=== PATIENT | female | born 2000 | race Caucasian/White ===

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

== ENCOUNTER → 2023-06-23 | Outpatient (CLI) | payer BC | LOC: M ADAMS 14:56 | PROVIDERS: ATTEND Nurse Practitioner Family | DX: M54.2 Cervicalgia (principal) ==

== ENCOUNTER → 2023-07-30 | Outpatient (CLI) | payer BC | LOC: M RAD 16:58 | PROVIDERS: ATTEND Nurse Practitioner Family | DX: J32.9 Chronic sinusitis, unspecified (principal) ==

== ENCOUNTER → 2023-08-12 | Outpatient (REF) | payer BC ==
[2023-08-12 13:04] LABS: BASO % 0.1 % (0.0-1.0); EOS # 0.1 10^3/uL (0.0-0.5); HEMATOCRIT 38.7 % (36.0-47.0); HEMOGLOBIN 12.8 g/dl (12.0-15.5); LYMPH # 1.7 10^3/uL (1.5-5.0); LYMPH % 23.1 % (24.0-44.0); MEAN CORPUSCULAR HEMOGLOBIN 30.6 pg (27.0-33.0); MEAN CORPUSCULAR HGB CONC 33.1 g/dl (32.0-36.5); MEAN CORPUSCULAR VOLUME 92.6 fl (80.0-96.0); MONO # 1.1 10^3/uL (0.0-0.8); MONO % 15.8 % (2.0-8.0); NEUTROPHILS # 4.3 10^3/uL (1.5-8.5); NEUTROPHILS % 59.7 % (36.0-66.0); PLATELET COUNT, AUTOMATED 288 10^3/uL (150-450); RED BLOOD COUNT 4.18 10^6/uL (4.00-5.40); WHITE BLOOD COUNT 7.2 10^3/uL (4.0-10.0)
[2023-08-12 13:09] LABS: ERYTHROCYTE SEDIMENTATION RATE 27 mm/hr (0-20)
[2023-08-12 13:41] LABS: URIC ACID 4.2 MG/DL (3.1-7.8)
[2023-08-12 13:44] LABS: FERRITIN 58.5 NG/ML (7.3-270.7); FREE T4 0.96 NG/DL (0.89-1.76); IRON (FE) 41 UG/DL (50-170); PERCENT SATURATION 11.6 % (13.2-45.0); THYROID STIMULATING HORMONE 2.613 uIU/ML (0.55-4.78); TOTAL IRON BINDING CAPACITY 352 UG/DL (250-425)
[2023-08-12 13:45] LABS: ALKALINE PHOSPHATASE 44 U/L (46-116); ALT/SGPT 15 U/L (7.0-40); AST/SGOT 13 U/L (<34); BILIRUBIN,TOTAL 0.5 MG/DL (0.3-1.2); BLOOD UREA NITROGEN 10 MG/DL (9-23); CALCIUM LEVEL 8.8 MG/DL (8.5-10.1); CARBON DIOXIDE LEVEL 27 MMOL/L (20-31); CHLORIDE LEVEL 105 MMOL/L (98-107); CHOLESTEROL LEVEL 147 MG/DL (<200); CHOLESTEROL RISK RATIO 2.94 (<5); CREATININE FOR GFR 0.78 MG/DL (0.55-1.30); GLOMERULAR FILTRATION RATE > 60.0 (>60); GLUCOSE, FASTING 102 MG/DL (60-100); HDL CHOLESTEROL 49.9 MG/DL (>40); LDL CHOLESTEROL 69.9 MG/DL (<100); NON-HDL-C 97.1 MG/DL; POTASSIUM SERUM 4.6 MMOL/L (3.5-5.1); SODIUM LEVEL 138 MMOL/L (136-145); TOTAL PROTEIN 6.8 G/DL (5.7-8.2); TRIGLYCERIDES LEVEL 136 MG/DL (<150)
== END ==
LOC: M SFHCCLAY 07:05
PROVIDERS: ATTEND Nurse Practitioner Family
DX: L50.9 Urticaria, unspecified (principal); R51.9 Headache, unspecified; R53.83 Other fatigue; L65.9 Nonscarring hair loss, unspecified; R00.2 Palpitations

== ENCOUNTER → 2023-09-29 | Outpatient (REF) | payer BC ==
[2023-09-29 20:08] LABS: COMPLEMENT C3 151.7 MG/DL (82.0-160.0); COMPLEMENT C4 16.3 MG/DL (12-36); THYROGLOBULIN ANTIBODY < 15.0 U/ML (<60.0); THYROID PEROXIDASE ANTIBODY 32 U/ML (<60.0)
[2023-09-30 18:51] LABS: COLD AGGLUTININS NEGATIVE (NEGATIVE); CRYOGLOBULINS NEGATIVE (NEGATIVE)
== END ==
LOC: M LABDRAWC 17:09
PROVIDERS: ATTEND Allergy & Immunology Allergy
DX: L50.1 Idiopathic urticaria (principal); L50.2 Urticaria due to cold and heat

== ENCOUNTER → 2023-11-17 | Outpatient (REF) | payer BC ==
[2023-11-17 15:15] LABS: Trichomonas vaginalis (AMP) NOT DETECTED (NEGATIVE)
[2023-11-17 15:39] LABS: GC DNA AMPLIFICATION NEGATIVE (NEGATIVE)
== END ==
LOC: M SFHCWAGY 12:57
PROVIDERS: ATTEND Nurse Practitioner Family
DX: Z01.419 Encounter for gynecological examination (general) (routine) without abnormal findings (principal); Z11.3 Encounter for screening for infections with a predominantly sexual mode of transmission

== ENCOUNTER → 2024-10-24 | Outpatient (REF) | payer BC ==
[2024-10-24 19:14] LABS: C REACTIVE PROTEIN QUANTITATIV < 0.50 MG/DL (<1.0)
[2024-10-24 19:17] LABS: ESTRADIOL 223.3 PG/ML; PROGESTERONE 1.22 NG/ML
[2024-10-26 07:52] LABS: DEHYDROEPIANDROSTERONE SULFATE 286 mcg/dL (14-349)
== END ==
LOC: M LABDRAWC 17:10
PROVIDERS: ATTEND Registered Nurse
DX: E55.9 Vitamin D deficiency, unspecified (principal); Z79.890 Hormone replacement therapy; E34.8 Other specified endocrine disorders; R53.83 Other fatigue; E66.9 Obesity, unspecified

== ENCOUNTER → 2025-04-03 | Outpatient (REF) | payer BC ==
[2025-04-03 18:52] LABS: LDH LACTATE DEHYDROGENASE 147 U/L (120-246)
[2025-04-03 18:53] LABS: ALT/SGPT 25 U/L (7.0-40); AST/SGOT 23 U/L (<34); C REACTIVE PROTEIN QUANTITATIV < 0.50 MG/DL (<1.0); CALCIUM LEVEL 8.4 MG/DL (8.5-10.1); CARBON DIOXIDE LEVEL 27 MMOL/L (20-31); CHLORIDE LEVEL 105 MMOL/L (98-107); CREATININE FOR GFR 0.72 MG/DL (0.55-1.30); GLOMERULAR FILTRATION RATE > 90.0 (>60); POTASSIUM SERUM 4.2 MMOL/L (3.5-5.1); SODIUM LEVEL 140 MMOL/L (136-145)
[2025-04-03 18:55] LABS: COMPLEMENT C4 14.8 MG/DL (12-36)
[2025-04-03 18:58] LABS: TOTAL 25(OH) VITAMIN D 30.9 NG/ML (20.0-100.0)
[2025-04-03 19:05] LABS: CPK CREATINE PHOSPHOKINASE 63 U/L (34-145)
[2025-04-03 19:12] LABS: BASO # 0.0 10^3/uL (0.0-0.2); BASO % 0.2 % (0.0-1.0); EOS # 0.3 10^3/uL (0.0-0.5); EOS % 4.1 % (0.0-3.0); LYMPH # 2.6 10^3/uL (1.5-5.0); LYMPH % 32.5 % (24.0-44.0); MONO # 0.8 10^3/uL (0.0-0.8); MONO % 10.4 % (2.0-8.0); NEUTROPHILS # 4.3 10^3/uL (1.5-8.5); NEUTROPHILS % 52.6 % (36.0-66.0); PLATELET COUNT, AUTOMATED 282 10^3/uL (150-450)
[2025-04-04 19:05] LABS: CRYOGLOBULINS NEGATIVE (NEGATIVE)
[2025-04-05 16:02] LABS: ALDOLASE 3.8 U/L (< OR = 8.1)
== END ==
LOC: M LABDRAWC 17:29
PROVIDERS: ATTEND Internal Medicine Rheumatology
DX: R21 Rash and other nonspecific skin eruption (principal); R79.82 Elevated C-reactive protein (CRP); R53.83 Other fatigue